=== PATIENT | female | born 1975 | race Caucasian/White ===

== ENCOUNTER 2020-06-21 09:18 | Emergency (ER) | payer MEDICAID ==
[~2020-06-21] VITALS: Ht 162.6 cm; Wt 76.0 kg
[2020-06-21] MEDS ORDERED: ACETAMINOPHEN 325MG TABLET PO STA (10:32)
[2020-06-21] MEDS ORDERED: SODIUM CHLORIDE 0.9% 1,000 ML IV ONE (10:32)
[2020-06-21 10:42] LABS: BASOPHILS % 0.9 % (0.0-2.0); EOSINOPHILS % 1.3 % (0.0-5.0); HEMATOCRIT. 37.9 % (36.0-48.0); LYMPHOCYTES % 40.3 % (20.0-50.0); MEAN CORPUSCULAR HEMOGLOBIN 32.4 pg (28.0-32.0); MEAN CORPUSCULAR VOLUME 94.5 fL (81.0-99.0); MEAN PLATELET VOLUME 9.8 fl (7.4-10.4); MONOCYTES % 8.5 % (2.0-8.0); PLATELET 322 x1000/uL (130-400); RED BLOOD CELL COUNT 4.01 mill/uL (4.2-5.4); RED CELL DISTRIBUTION WIDTH 14.9 % (11.6-14.6)
[2020-06-21 10:43] LABS: CLARITY URINE CLEAR (CLEAR); COLOR URINE RED (YELLOW); KETONES URINE NEGATIVE (NEGATIVE); LEUKOCYTE ESTERASE URINE NEGATIVE (NEGATIVE); NITRITE URINE NEGATIVE (NEGATIVE); OCCULT BLOOD URINE 3+ (NEGATIVE); PH URINE 7.5 (4.5-8.0); PROTEIN URINE NEGATIVE (NEGATIVE); SPECIFIC GRAVITY URINE 1.011 (1.005-1.030); UROBILINOGEN URINE 0.2 E.U./dL (0.2-1.0)
[2020-06-21] MEDS ORDERED: METOCLOPRAMIDE HCL 10MG/2ML VIAL IV ONE (10:45)
[2020-06-21] MEDS ORDERED: DIPHENHYDRAMINE 50MG/ML VIAL IV ONE (10:45)
[2020-06-21] MEDS ORDERED: DEXAMETHASONE 4MG/ML 1ML VIAL IV ONE (10:45)
[2020-06-21 10:49] LABS: CHLORIDE 104 mEq/L (98-107)
[2020-06-21 10:52] LABS: INR 0.9
[2020-06-21 10:54] LABS: HCG SCREEN NEGATIVE
[2020-06-21 11:13] LABS: *AMPHETAMINES SCREEN URINE NEGATIVE (NEGATIVE); *BARBITURATES SCREEN URINE NEGATIVE (NEGATIVE); *BENZODIAZEPINES SCREEN URINE NEGATIVE (NEGATIVE); *COCAINE SCREEN URINE NEGATIVE (NEGATIVE); METHADONE URINE SCREEN NEGATIVE (NEGATIVE); OPIATES URINE SCREEN NEGATIVE (NEGATIVE)
[2020-06-21 11:14] LABS: CANNABINOID URINE SCREEN NEGATIVE (NEGATIVE); PHENCYCLIDINE URINE SCREEN NEGATIVE (NEGATIVE)
[2020-06-21] MEDS ORDERED: NEOMYCIN-POLYMYXIN B-HYDROCORTISONE 1% OTIC SOLN 10ML RIGHT EAR SCH (12:00)
[2020-06-21 13:38] VITALS: BP 139/9
[2020-06-21] MEDS ORDERED: CLINDAMYCIN HCL 150MG CAPSULE PO SCH (18:00)
== END 2020-06-21 13:46 | disposition home or self-care (01) ==
LOC: ER 09:18
DX: H70.90 Unspecified mastoiditis, unspecified ear (principal); E87.6 Hypokalemia; H60.90 Unspecified otitis externa, unspecified ear; F31.9 Bipolar disorder, unspecified; E78.00 Pure hypercholesterolemia, unspecified; I10 Essential (primary) hypertension
CPT/HCPCS: 36415; 70450; 71045; 80053; 80305; 81003; 84703; 85025; 85610; 96374; 96375; 99285; J1100; J1200; J2765; J7030

== ENCOUNTER 2020-06-24 11:17 | Emergency (ER) | payer MEDICAID ==
[~2020-06-24] VITALS: Ht 152.4 cm; Wt 64.0 kg
[2020-06-24 11:18] VITALS: BP 117/67
== END 2020-06-24 12:22 | disposition home or self-care (01) ==
LOC: ER 11:17
DX: H66.91 Otitis media, unspecified, right ear (principal); I10 Essential (primary) hypertension; E78.00 Pure hypercholesterolemia, unspecified; F31.9 Bipolar disorder, unspecified
CPT/HCPCS: 99281; 99283

== ENCOUNTER 2025-04-15 11:47 | Emergency (ER) | payer MEDICAID, OTHER ==
[~2025-04-15] VITALS: Ht 157.5 cm; Wt 55.0 kg
[~2025-04-15 11:47] MED LIST: TOPUD PO
[2025-04-15 11:52] VITALS: O2SAT 100
[2025-04-15] MEDS: ACETAMINOPHEN 325MG TABLET PO ONE (12:58)
[2025-04-15] MEDS: IBUPROFEN 400MG TABLET PO ONE (12:58)
[2025-04-15 13:08] LABS: BASOPHILS % 0.5 % (0.0-2.0); DIFFERENTIAL COMMENT 0; HEMATOCRIT. 41.3 % (36.0-48.0); HEMOGLOBIN. 13.7 g/dL (12.0-16.0); LYMPHOCYTES % 26.3 % (20.0-50.0); MEAN CORPUSCULAR HEMOGLOBIN 27.5 pg (28.0-32.0); MEAN CORPUSCULAR HGB CONC 33.3 g/dL (31.0-37.0); MEAN CORPUSCULAR VOLUME 82.7 fL (81.0-99.0); MEAN PLATELET VOLUME 9.8 fl (7.4-10.4); MONOCYTES % 6.6 % (2.0-8.0); NEUTROPHILS % 66.6 % (40.0-76.0); PLATELET 228 x1000/uL (130-400); RED BLOOD CELL COUNT 4.99 mill/uL (4.2-5.4); RED CELL DISTRIBUTION WIDTH 21.6 % (11.6-14.6); WHITE BLOOD COUNT 7.1 x1000/uL (4.5-11.0)
[2025-04-15 13:14] LABS: CHLORIDE 100 mEq/L (98-107); SODIUM 136 mEq/L (136-145)
[2025-04-15 13:15] LABS: CALCIUM 9.8 mg/dL (8.7-10.4); CARBON DIOXIDE 25 mEq/L (21-32)
[2025-04-15 13:20] LABS: CREATININE 0.9 mg/dL (0.6-1.0); GLUCOSE 99 mg/dL (70-105); UREA NITROGEN BLOOD 19 mg/dL (9-23)
[2025-04-15 13:22] LABS: ALANINE AMINOTRANSFERASE 11 IU/L (10-49); ALBUMIN 4.5 g/dL (3.2-4.8); ASPARTATE AMINOTRANSFERASE 11 IU/L (<34); BILIRUBIN DIRECT 0.2 mg/dL (<=3.0); BILIRUBIN TOTAL 0.9 mg/dL (0.1-1.0); PROTEIN TOTAL 8.7 g/dL (6.0-8.3)
[2025-04-15 13:24] LABS: HCG SCREEN NEGATIVE
[2025-04-15 14:02] LABS: LACTIC ACID 2.3 mmol/L (0.4-2.0); TROPONIN I HIGH SENSITIVITY < 4 ng/L (3.0-34)
[2025-04-15 14:22] VITALS: BP 115/82; PULSE 105; RESP 18; TEMP 36.7; O2SAT 100
== END 2025-04-15 19:31 | disposition home or self-care (01) ==
LOC: ER 11:47
DX: R51.9 Headache, unspecified (principal); R22.0 Localized swelling, mass and lump, head; E78.5 Hyperlipidemia, unspecified; F31.9 Bipolar disorder, unspecified; I10 Essential (primary) hypertension
CPT/HCPCS: 80076; 80048; 84703; 83880; 83605; 85025; 84484; 36415; 70450; 93005; 99284; Z7610; A4606

== ENCOUNTER 2025-04-19 12:40 | Emergency (ER) | payer MEDICAID ==
[~2025-04-19] VITALS: Ht 160 cm; Wt 59.0 kg
[2025-04-19 12:43] VITALS: O2SAT 98
[2025-04-19 15:22] VITALS: BP 114/82; PULSE 59; RESP 17; TEMP 36.7; O2SAT 100
== END 2025-04-19 15:38 | disposition home or self-care (01) ==
LOC: ER 12:40
DX: I10 Essential (primary) hypertension (principal); F32.A Depression, unspecified; Z79.899 Other long term (current) drug therapy
CPT/HCPCS: 99283